=== PATIENT | female | born 1995 | race Caucasian/White ===

== ENCOUNTER 2019-10-19 09:45 | Inpatient (IN) | payer OTHER ==
--- NOTE | 2019-10-19 10:05 | BHS.RME ---
Substance Use & Tx History - Substance Use History Alcohol Substance amount: one pint Vodka Frequency of use: Daily Substance route: Oral Date of Last Use: 10/19/19 (First drink age 20. No seizures. Blackouts x 4, last was months ago. Admits to an eye channel opener outsoles) Nicotine Substance amount: one cig Frequency of use: Daily Substance route: Smoking Date of Last Use: 10/19/19 (First use age 20 y) - Last Treatment Date of last treatment: First visit here Physical/Psych/Mental Status - Behavior General Behavior: Increased activity (restlessness, agitation) Eye Contact: Normal - Cooperativeness Cooperativeness: Reluctant, Cooperative - Thinking Thought Processes: Tight Thought content: Future oriented - Physical Health Problems Is patient presently having any pain?: No Does patient presently have any injuries (include location): No Does patient currently have a fever: No CIWA Nausea/Vomitin Muscle Tremors: 3 Anxiety: 4-Mod. Anxious/Guarded Agitation: 1-Slight > Activity Paroxysmal Sweats: 4-Forehead w/Sweat Beads Orientation: 0-Oriented Tacttile Disturbances: 0-None Auditory Disturbances: 0-None Visual Disturbances: 0-None Headache: 0-None Present CIWA-Ar Total Score: 14
[2019-10-19 10:30] VITALS: BMI 26.0
--- NOTE | 2019-10-19 10:53 | HP ---
CIWA Score Nausea/Vomitin Muscle Tremors: 3 Anxiety: 4-Mod. Anxious/Guarded Agitation: 1-Slight > Activity Paroxysmal Sweats: 4-Forehead w/Sweat Beads Orientation: 0-Oriented Tacttile Disturbances: 0-None Auditory Disturbances: 0-None Visual Disturbances: 0-None Headache: 0-None Present CIWA-Ar Total Score: 14 - Admission Criteria OASAS Guidelines: Admission for Medically Managed Detox: Requires at least one of the followin. CIWA greater than 12 2. Seizures within the past 24 hours 3. Delirium tremens within the past 24 hours 4. Hallucinations within the past 24 hours 5. Acute intervention needed for co occurring medical disorder 6. Acute intervention needed for co occurring psychiatric disorder 7. Severe withdrawal that cannot be handled at a lower level of care (continued vomiting, continued diarrhea, abnormal vital signs) requiring intravenous medication and/or fluids 8. Admitting History and Physical - Admission Chief Complaint: " I need to stop using alcohol." History of Present Illness: 23 year old female with history of alcohol dependence with withdrawal, nicotine dependence seeking detox. She has never been to detox in the past. She was seen yesterday at [facility] and given Ativan and referred out. She was also expressin suicidal thoughts then "didn't want to live anymore" but didn't have a plan. Psych saw her there and cleared her. ALCOHOL: 1 pint vodka daily, started at age 20 and last used yesterday AM. Denies seizure, but has had blackout, last one 1 month ago, and endorses the need for an eye lpn or medical assistant daily. Nicotine: 1 pack daily, started at age 20 smoking. PMH: None Psurg: None Psych: Anxiety - off meds Living with mother at home, no legal issues pending. MICAELA=0 CIWA=14 She meets criteria for detox as she is at high risk for relapse and has untreated psychiatric co-morbidity. She wants to be assessed by psychiatrist while here in detox. History Source: Patient Limitations to Obtaining History: No Limitations - Past Medical History Psych: Yes: Anxiety, Depression - Past Surgical History Past Surgical History: Yes: None - Smoking History Smoking history: Current every day smoker Have you smoked in the past 12 months: Yes Aproximately how many cigarettes per day: 20 - Alcohol/Substance Use Hx Alcohol Use: Yes Number of Drinks Daily: 10 - Social History Usual Living Arrangement: Yes: With Parent Do you think of yourself as: Straight/Heterosexual ADL: Independent Occupation: student, unemployed History of Recent Travel: No Admission ROS S - HPI Allergies/Adverse Reactions: Allergies Allergy/AdvReac Type Severity Reaction Status Date / Time No Known Allergies Allergy Verified 10/19/19 10:37 Exam Limitations: No Limitations - Ebola screening Have you traveled outside of the country in the last 21 days: No Have you had contact with anyone from an Ebola affected area: No Have you been sick,other than usual withdrawal symptoms: No Do you have a fever: No - Review of Systems Constitutional: Chills, Diaphoresis EENT: reports: No Symptoms Reported Respiratory: reports: No Symptoms reported Cardiac: reports: No Symptoms Reported GI: reports: No Symptoms Reported : reports: No Symptoms Reported Musculoskeletal: reports: No Symptoms Reported Integumentary: reports: No Symptoms Reported Neuro: reports: No Symptoms reported Endocrine: reports: No Symptoms Reported Hematology: reports: No Symptoms Reported Psychiatric: reports: Judgement Intact, Mood/Affect Appropiate, Orientated x3, Agitated, Anxious, Depressed Other Systems: Reviewed and Negative Patient History - Patient Medical History Hx Anemia: No Hx Asthma: No Hx Chronic Obstructive Pulmonary Disease (COPD): No Hx Cancer: No Hx Cardiac Disorders: No Hx Congestive Heart Failure: No Hx Hypertension: No Hx Hypercholesterolemia: No Hx Pacemaker: No HX Cerebrovascular Accident: No Hx Seizures: No Hx Dementia: No Hx Diabetes: No Hx Gastrointestinal Disorders: No Hx Liver Disease: No Hx Genitourinary Disorders: No Hx Sexually Transmitted Disorders: No Hx Renal Disease (ESRD): No Hx Thyroid Disease: No Hx Hepatitis C: No Hx Depression: No Hx Suicide Attempt: No Hx Bipolar Disorder: No Hx Schizophrenia: No Other Medical History: Anxiety and possible depression - Patient Surgical History Past Surgical History: No - Smoking Cessation Smoking history: Current every day smoker Have you smoked in the past 12 months: Yes Aproximately how many cigarettes per day: 20 Hx Chewing Tobacco Use: No Initiated information on smoking cessation: Yes 'Breaking Loose' booklet given: 10/19/19 - Substances abused Alcohol Substance route: Oral Frequency: Daily Amount used: 1 pint Age of first use: 20 Date of last use: 10/18/19 Admission Physical Exam BHS - Vital Signs Vital Signs: Vital Signs - 24 hr 10/19/19 10:18 Temperature 98.4 F Pulse Rate 110 H Respiratory 20 Rate Blood Pressure 129/88 - Physical General Appearance: Yes: Mild Distress, Thin, Tremorous, Irritable, Sweating, Anxious HEENTM: Yes: EOMI, Hearing grossly Normal, Normal ENT Inspection, Normocephalic, Normal Voice, BHAVANA, Pharynx Normal, Tm's normal Respiratory: Yes: Chest Non-Tender, Lungs Clear, Normal Breath Sounds, No Respiratory Distress, No Accessory Muscle Use Neck: Yes: No masses,lesions,Nodules, Supple, Trachea in good position Breast: Yes: Breast Exam Deferred Cardiology: Yes: Regular Rhythm, Regular Rate, S1, S2 Abdominal: Yes: Normal Bowel Sounds, Non Tender, Flat, Soft Genitourinary: Yes: Within Normal Limits Back: Yes: Normal Inspection Musculoskeletal: Yes: full range of Motion, Gait Steady, Pelvis Stable Extremities: Yes: Normal Capillary Refill, Normal Inspection, Normal Range of Motion, Non-Tender Neurological: Yes: corporate planner II-XII NML intact, Fully Oriented, Alert, Motor Strength 5/5, Normal Mood/Affect, Normal Response Integumentary: Yes: Normal Color, Dry, Warm Lymphatic: Yes: Within Normal Limits Cleared for Admission S - Detox or Rehab [facility] Level of Care: Medically Managed Detox Regimen/Protocol: Librium Claeared for Rehab Admission: No Screened but not Admitted - Documentation of Visit Screened but not Admitted: No Breathalyzer - Breathalyzer Breathalyzer: 0 Urine Drug Screen - Test Device Lot number: [id number] Expiration date: 11/27/20 - Control Is test valid?: Yes - Results Drug screen NEGATIVE: No Urine drug screen results: BZO-Benzodiazepines Inpatient Rehab Admission - Rehab Decision to Admit Inpatient rehab admission?: No
[2019-10-19] MEDS ORDERED: MENTHOL/PHENOL 1 EACH UD MM PRN (10:57)
[2019-10-19] MEDS ORDERED: NICOTINE POLACRILEX 2 MG GUM BUC PRN (10:57)
[2019-10-19] MEDS ORDERED: METHOCARBAMOL 500 MG TABLET PO PRN (10:57)
[2019-10-19] MEDS ORDERED: MAG HYDROX/AL HYDROX/SIMETH 30 ML UNIT-DOSE CUP PO PRN (10:57)
[2019-10-19] MEDS ORDERED: chlordiazePOXIDE HCL 25 MG CAPSULE PO PRN (10:57)
[2019-10-19] MEDS ORDERED: IBUPROFEN 400 MG TABLET (FP) PO PRN (10:57)
[2019-10-19] MEDS ORDERED: ONDANSETRON *ODT* 4 MG TABLET SL ONE (10:57)
[2019-10-19] MEDS ORDERED: BISMUTH SUBSALICYLATE 262 MG/15 ML BTL PO PRN (10:57)
[2019-10-19] MEDS ORDERED: ACETAMINOPHEN 325 MG TABLET (FP) PO PRN ×2 (10:57)
[2019-10-19] MEDS ORDERED: MAGNESIUM CITRATE 300 ML BOTTLE PO PRN (10:57)
[2019-10-19] MEDS ORDERED: MAGNESIUM HYDROX 2400MG/30ML ORAL SUSPENSION 30 ML CUP PO PRN (10:57)
[2019-10-19] MEDS: PRENATAL VITAMINS W/ FOLIC ACID TABLET (FP) PO SCH (12:09)
[2019-10-19] MEDS: NICOTINE 7 MG/24 HOURS TOPICAL PATCH TD SCH (12:09)
[2019-10-19] MEDS: chlordiazePOXIDE HCL 25 MG CAPSULE PO SCH ×3 (12:09→22:15)
[2019-10-19] MEDS: hydrOXYzine PAMOATE 25 MG CAPSULE (FP) PO SCH ×3 (13:40→22:15)
[2019-10-19 14:07] LABS: HEMATOCRIT 41.3 % (32.4-45.2); HEMOGLOBIN 14.1 GM/dL (10.7-15.3); MCHC 34.1 g/dl (32.0-36.0); MEAN CELL VOLUME 93.7 fl (80-96); MEAN PLT VOLUME 7.1 fl (7.5-11.1); PLATELET COUNT 277 K/MM3 (134-434); RDW 12.4 % (11.6-15.6); WHITE BLOOD COUNT 2.7 K/mm3 (4.0-10.0)
[2019-10-19 14:17] LABS: ALBUMIN 4.2 g/dl (3.4-5.0); BILIRUBIN,TOTAL 1.1 mg/dL (0.2-1); BLOOD UREA NITROGEN 6.8 mg/dL (7-18); CALCIUM 9.4 mg/dL (8.5-10.1); CREATININE 0.7 mg/dL (0.55-1.3); POTASSIUM 4.1 mmol/L (3.5-5.1); TOT PROT 7.7 g/dl (6.4-8.2)
--- NOTE | 2019-10-19 15:17 | CONSULT ---
[facility] Psychiatric Consult - Data Date of interview: 10/19/19 Admission source: [facility]
[2019-10-19] MEDS ORDERED: THIAMINE HCL 100 MG TABLET (FP) PO SCH (22:00)
[2019-10-19] MEDS ORDERED: MELATONIN 5 MG TABLETS PO SCH (22:00)
[2019-10-20] MEDS: chlordiazePOXIDE HCL 25 MG CAPSULE PO SCH ×2 (05:54→10:11)
[2019-10-20] MEDS: hydrOXYzine PAMOATE 25 MG CAPSULE (FP) PO SCH ×3 (05:54→14:28)
--- NOTE | 2019-10-20 09:34 | PN ---
S CIWA - CIWA Score Nausea/Vomitin-Mild Nausea/No Vomiting Muscle Tremors: 3 Anxiety: 4-Mod. Anxious/Guarded Agitation: 2 Paroxysmal Sweats: 1-Minimal Palms Moist Orientation: 0-Oriented Tacttile Disturbances: 0-None Auditory Disturbances: 0-None Visual Disturbances: 0-None Headache: 0-None Present CIWA-Ar Total Score: 11 BHS Progress Note (SOAP) Subjective: 23 years old female admitted on 10/19/19 for alcohol withdrawal sx management treating with librium detox regiment ms santillan is sad about not able to contact with her boyfriend in [place] that her mother dose not know the phone number mother is part of support resource for ms santillan alcohol recovery encourage ms santillan contacting her mother for resolution alcohol abuse added into problem list Objective: 10/20/19 09:33 Vital Signs - 24 hr 10/19/19 10/19/19 10/19/19 10:18 12:32 17:17 Temperature 98.4 F 97.7 F 98.0 F Pulse Rate 110 H 101 H 103 H Respiratory 20 16 18 Rate Blood Pressure 129/88 130/79 122/88 O2 Sat by Pulse 99 Oximetry (%) 10/19/19 10/20/19 20:41 06:17 Temperature 97.3 F L 97.5 F L Pulse Rate 91 H 86 Respiratory 18 18 Rate Blood Pressure 117/84 118/75 O2 Sat by Pulse 99 96 Oximetry (%) Laboratory Tests 10/19/19 10/19/19 10/19/19 10:48 11:15 11:15 WBC 2.7 L RBC 4.40 Hgb 14.1 Hct 41.3 MCV 93.7 MCH 32.0 MCHC 34.1 RDW 12.4 Plt Count 277 MPV 7.1 L Sodium 135 L Potassium 4.1 Chloride 97 L Carbon Dioxide 26 Anion Gap 12 BUN 6.8 L Creatinine 0.7 Est GFR (CKD-EPI)AfAm 140.55 Est GFR (CKD-EPI)NonAf 121.27 Random Glucose 101 Calcium 9.4 Total Bilirubin 1.1 H AST 26 ALT 56 Alkaline Phosphatase 58 Total Protein 7.7 Albumin 4.2 POC Urine HCG, Qual Negative Syphilis Serology HIV Ag/Ab Combo Qual 10/19/19 10/19/19 11:15 11:15 WBC RBC Hgb Hct MCV MCH MCHC RDW Plt Count MPV Sodium Potassium Chloride Carbon Dioxide Anion Gap BUN Creatinine Est GFR (CKD-EPI)AfAm Est GFR (CKD-EPI)NonAf Random Glucose Calcium Total Bilirubin AST ALT Alkaline Phosphatase Total Protein Albumin POC Urine HCG, Qual Syphilis Serology Non-reactive HIV Ag/Ab Combo Qual Negative 10/20/19 09:34 low [facility] admission repeat cbc covid pending 10/20/19 09:35 10/20/19 09:37 add ua into admission lab work Assessment: 10/20/19 09:38 alcohol withdrawal Plan: librium regiment
[2019-10-20] MEDS: PRENATAL VITAMINS W/ FOLIC ACID TABLET (FP) PO SCH (10:10)
[2019-10-20] MEDS: NICOTINE 7 MG/24 HOURS TOPICAL PATCH TD SCH (10:11)
[2019-10-20 13:22] VITALS: BP 115/83; PULSE 100; TEMP 97.3
--- NOTE | 2019-10-20 13:55 | DS ---
[facility] Detox Discharge Summary Admission Date: 10/19/19 Discharge Date: 10/20/19 - History Present History: Alcohol Dependence Additional Comments: 23 years old female admitted on 10/19/19 for alcohol withdrawal sx management treated with librium detox regiment ms santillan states that she was in the hospital 2-3 days before came to [place] for detox feeling better now prefers to leave the detox due to "can not call [place] boyfriend" "can not sleep without talking to him" "no one to talke to" treatment team met with the patient establishing trust relationship ms santillan rejects the offer "you are not the one I want to talk to" ms santillan insists to go home to her mother obtain consent to talk to mother who will "search" ms santillan for alcohol before step in the house ms santillan agrees ms santillan is alert oriented x 3 speech clearly coherently goal directed ambulating with steady gaits cardiac s1s2 regular rate rhythm Vital Signs - 24 hr 10/19/19 10/19/19 10/20/19 17:17 20:41 06:17 Temperature 98.0 F 97.3 F L 97.5 F L Pulse Rate 103 H 91 H 86 Respiratory 18 18 18 Rate Blood Pressure 122/88 117/84 118/75 O2 Sat by Pulse 99 96 Oximetry (%) 10/20/19 10/20/19 08:57 12:22 Temperature 97.5 F L 97.3 F L Pulse Rate 94 H 100 H Respiratory 16 18 Rate Blood Pressure 118/77 115/83 O2 Sat by Pulse 99 Oximetry (%) respiratory clear lung sounds bilaterally on auscultation extremities full range of motion Pertinent Past History: time for discharge 51 minutes treatment team met with the patient to discuss the benefits of librium complet ion - Physical Exam Results Vital Signs: Vital Signs Temperature 97.3 F L 10/20/19 12:22 Pulse Rate 100 H 10/20/19 12:22 Respiratory Rate 18 10/20/19 12:22 Blood Pressure 115/83 10/20/19 12:22 O2 Sat by Pulse Oximetry (%) 99 10/20/19 12:22 Pertinent Admission Physical Exam Findings: alcohol withdrawal Laboratory Tests 10/19/19 10/19/19 10/19/19 10:48 11:15 11:15 WBC 2.7 L RBC 4.40 Hgb 14.1 Hct 41.3 MCV 93.7 MCH 32.0 MCHC 34.1 RDW 12.4 Plt Count 277 MPV 7.1 L Sodium 135 L Potassium 4.1 Chloride 97 L Carbon Dioxide 26 Anion Gap 12 BUN 6.8 L Creatinine 0.7 Est GFR (CKD-EPI)AfAm 140.55 Est GFR (CKD-EPI)NonAf 121.27 Random Glucose 101 Calcium 9.4 Total Bilirubin 1.1 H AST 26 ALT 56 Alkaline Phosphatase 58 Total Protein 7.7 Albumin 4.2 POC Urine HCG, Qual Negative Syphilis Serology COVID-19 ([facility]) HIV Ag/Ab Combo Qual 10/19/19 10/19/19 10/19/19 11:15 11:15 11:50 WBC RBC Hgb Hct MCV MCH MCHC RDW Plt Count MPV Sodium Potassium Chloride Carbon Dioxide Anion Gap BUN Creatinine Est GFR (CKD-EPI)AfAm Est GFR (CKD-EPI)NonAf Random Glucose Calcium Total Bilirubin AST ALT Alkaline Phosphatase Total Protein Albumin POC Urine HCG, Qual Syphilis Serology Non-reactive COVID-19 ([facility]) Not detected HIV Ag/Ab Combo Qual Negative lab noted - Treatment Hospital Course: Detox Protocol Followed, Responded well Patient has Accepted a Rehab Referral to: community support AA - Medication Discharge Medications: Ambulatory Orders NK [No Known Home Medication] 10/19/19 - Diagnosis (1) Alcohol dependence, uncomplicated Current Visit: Yes Status: Acute - AMA Did Patient Leave Against Medical Advice: Yes CIWA Score - CIWA Score Nausea/Vomitin-No Nausea/No Vomiting Muscle Tremors: 3 Anxiety: 4-Mod. Anxious/Guarded Agitation: 2 Paroxysmal Sweats: 1-Minimal Palms Moist Orientation: 0-Oriented Tacttile Disturbances: 0-None Auditory Disturbances: 0-None Visual Disturbances: 0-None Headache: 0-None Present CIWA-Ar Total Score: 10
[2019-10-21] MEDS ORDERED: chlordiazePOXIDE HCL 25 MG CAPSULE PO SCH (05:00)
[2019-10-22] MEDS ORDERED: chlordiazePOXIDE HCL 10 MG CAPSULE PO PRN
[2019-10-22] MEDS ORDERED: chlordiazePOXIDE HCL 10 MG CAPSULE PO SCH (05:00)
[2019-10-23] MEDS ORDERED: chlordiazePOXIDE HCL 10 MG CAPSULE PO SCH (05:00)
[2019-10-24] MEDS ORDERED: chlordiazePOXIDE HCL 10 MG CAPSULE PO ONE (05:00)
== END 2019-10-20 15:21 | disposition left against medical advice (07) | DRG 770 ==
LOC: YASAS 09:45 → Y3N 11:27
PROVIDERS: ADMIT Allergy & Immunology; ATTEND Allergy & Immunology
PROC: HZ2ZZZZ Detoxification Services for Substance Abuse Treatment (ICD-10-PCS; principal; 2019-10-19)
DX: F10.230 Alcohol dependence with withdrawal, uncomplicated (principal); F17.210 Nicotine dependence, cigarettes, uncomplicated; F41.9 Anxiety disorder, unspecified
CPT/HCPCS: 36415; 80053; 81025; 85027; 86780; 87389; Q0162; U0003